=== PATIENT | male | born 1995 | race Hispanic/Latino ===

== ENCOUNTER 2017-09-20 00:39 | Emergency (ER) | payer OTHER ==
[~2017-09-20] VITALS: Ht 182.9 cm; Wt 77.1 kg
[~2017-09-20 00:39] MED LIST: CIPRO 500MG TA500 MG PO; FLAG500 PO; PERCOCET 325 MG1 TA2 PO
--- NOTE | 2017-09-20 00:46 | ED EYE COMPLAINT ---
History of Present Illness General Chief Complaint: Eye Problems Stated Complaint: " BOTH MY EYES ARE BURING" Source: patient Exam Limitations: no limitations Vital Signs & Intake/Output Vital Signs & Intake/Output Vital Signs Date Time Temp Pulse Resp B/P B/P Pulse O2 O2 Flow FiO2 Mean Ox Delivery Rate 09/20 0050 98.1 71 18 148/71 96 Room Air Allergies Coded Allergies: NO KNOWN ALLERGIES (12/09/14) Reconcile Medications Albuterol Sulfate (Ventolin Hfa) 90 MCG HFA.AER.AD 2 PUF INH Q4-6 PRN PRN cough, wheeze Ciprofloxacin (Cipro) 500 MG TAB 1 TAB PO BID intra-abdominal infection Metronidazole (Flagyl) 500 MG TAB 500 MG PO Q6 intra-abdominal infection do not drink alcohol while taking this medication, and for 2 days after stopping it OXYCODONE HCL/ACETAMINOPHEN (Percocet 5-325 MG Tablet) 325 MG/5 MG TAB 1-2 TAB PO Q4-6 PRN PRN PAIN take as directed for pain control. you may take tylenol alternatively but not in combination with percocet. do not drive if taking percocet. Polytrim (Polytrim Eye Drops) 10,000 UNIT-1 MG/ML DROPS 2 GTT OPH Q6 conjunctivitis x 7 days Triage Nurses Notes Reviewed? yes Onset: Gradual Duration: hour(s): Timing: recent history Injury Environment: work Severity: moderate Modifying Factors: Improves With: rest. Left Eye Associated Symptoms: burning, redness Right Eye Associated Symptoms: redness HPI: 21 yo gentleman presents with bilateral eye pain. 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 No vision changes. He is otherwise well. Past History Travel History Traveled to [place] past 21 day No Medical History Any Pertinent Medical History? see below for history Neurological: NONE EENT: NONE Cardiovascular: NONE Respiratory: NONE Gastrointestinal: NONE Hepatic: NONE Renal: NONE Musculoskeletal: NONE Psychiatric: NONE Endocrine: NONE Blood Disorders: NONE Cancer(s): NONE SHAMPOO PERSON/Reproductive: NONE History of MRSA: No History of VRE: No History of CDIFF: No Surgical History Surgical History: N Psychosocial History Who do you live with Family Services at Home None What is your primary language [place] Family History Hx Contributory? No Review of Systems Review of Systems Constitutional: Reports: no symptoms. Eyes: Reports: no symptoms. Ear: Reports: no symptoms. Nose: Reports: no symptoms. Mouth: Reports: no symptoms. Throat: Reports: no symptoms. Respiratory: Reports: no symptoms. Cardiovascular: Reports: no symptoms. GI: Reports: no symptoms. Genitourinary: Reports: no symptoms. Musculoskeletal: Reports: no symptoms. Skin: Reports: no symptoms. Neurological/Psychological: Reports: no symptoms. Hematologic/Endocrine: Reports: no symptoms. Immunologic/Allergic: Reports: no symptoms. All Other Systems: Reviewed and Negative Physical Exam General Appearance: well developed/nourished, mild distress General Inspection: normal inspection Eyelid: normal inspection Conjunctiva/Sclera: injected Cornea: normal inspection EOM: intact Pupil: normal accommodation, normal pupil, PERRL General Inspection: normal inspection Eyelid: normal inspection Conjunctiva/Sclera: injected Cornea: normal inspection EOM: intact Pupil: normal accommodation, normal pupil, PERRL Physical Exam Head: atraumatic, normal appearance Nose: normal inspection Mouth/Throat: normal mouth inspection Neck: normal inspection, supple, full range of motion Progress Differential Diagnosis: corneal abrasion, conjunctivitis Plan of Care: tetracaine applied... pt feels better... rx for polytrim... pt referred to optho in the AM. Departure Departure Disposition: HOME OR SELF CARE Condition: Stable Clinical Impression Primary Impression: Conjunctivitis Secondary Impressions: Flash burn of both eyes Referrals: Heidi GRANADOS,Daniel Dalton (PCP/Family) Departure Forms: Customer Survey General Discharge Information Prescriptions: Current Visit Scripts Polytrim (Polytrim Eye Drops) 2 GTT OPH Q6 #20 ML x 7 days Albuterol Sulfate (Ventolin Hfa) 2 PUF INH Q4-6 PRN PRN cough, wheeze #1 INHAL
[2017-09-20 00:50] VITALS: BP 148/71
[2017-09-20] MEDS ORDERED: POLYTRIM EYE DR10 ML OPH (00:53)
[2017-09-20] MEDS ORDERED: VENTOLIN HFA18 GM INH (00:56)
== END 2017-09-20 00:58 ==
LOC: ERH 00:39
DX: H10.9 Unspecified conjunctivitis (principal); T26.31XA Burns of other specified parts of right eye and adnexa, initial encounter; T26.32XA Burns of other specified parts of left eye and adnexa, initial encounter; X58.XXXA Exposure to other specified factors, initial encounter; Y92.89 Other specified places as the place of occurrence of the external cause; Y93.89 Activity, other specified